=== PATIENT | male | born 1990 | race Caucasian/White ===

== ENCOUNTER 2020-12-06 16:25 | Emergency (ER) | payer BC, OTHER ==
--- NOTE | 2020-12-06 17:52 | EDM.PDOC ---
ED HPI GENERAL MEDICAL PROBLEM - General Chief Complaint: Back Pain or Injury Stated Complaint: BACK PAIN Time Seen by Provider: 12/06/20 17:36 Source of Information: Reports: Patient History Limitations: Reports: No Limitations - History of Present Illness INITIAL COMMENTS - FREE TEXT/NARRATIVE: HISTORY AND PHYSICAL: History of present illness: The patient is a 30-year-old presents to the ER with chronic mid back pain for approximately 2 years, occasional dizziness affecting his equilibrium, a dry cough and occasional shortness of breath. The patient is worried about chest cancer of some time due to smoking from the age of 16 to the age of 26. The patient cannot identify any worsening of his symptoms he is just saying that his made him come to the ER for concerns over cancer. States that he does not take any [id number] medications to treat his back pain and that he is able to work. He states approximately 4 years ago he felt a pop in his back after lifting a heavy object but never had a work-up for it. Patient states his back pain is intermittent. Patient denies any fever, chills, headache, change in vision, syncope or near syncope. Denies any chest pain. Denies any abdominal pain, nausea, vomiting, diarrhea, constipation or dysuria. Has not noted any blood in urine or stool. Patient has been eating and drinking appropriately. Review of systems: As per history of present illness and below otherwise all systems reviewed and negative. Past medical history: As per history of present illness and as reviewed below otherwise noncontribu tory. Surgical history: As per history of present illness and as reviewed below otherwise noncontributory. Social history: See social history for further information Family history: As per history of present illness and as reviewed below otherwise noncontributory. Physical exam: General: Well developed and well nourished. Alert and orientated x 3. Nontoxic in appearance and in no acute distress. Vital signs are stable and have been reviewed by me. Nursing notes were reviewed. HEENT: Atraumatic, normocephalic, pupils equal and reactive bilaterally, negative for conjunctival pallor or scleral icterus, mucous membranes moist, TMs normal bilaterally, throat clear, neck supple, nontender, trachea midline. No drooling or trismus noted. No meningeal signs. No hot potato voice noted. Lungs: Clear to auscultation bilaterally. No wheezes, rales, or rhonchi. Chest nontender. Normal work of breathing, no accessory muscles used. Heart: S1S2, regular rate and rhythm without overt murmur, gallops, or rubs. No JVD. No peripheral edema Abdomen: Soft, nondistended, nontender. Normoactive bowel sounds. Negative for masses or costovertebral tenderness. Back: Neck and back have no deformities, external skin changes, or signs of trauma. Curvature of the cervical, thoracic, and lumbar spine are within normal limits. Bony features of the shoulders and hips are of equal height bilaterally. Posture is upright, gait is smooth, steady, and within normal limits. No tenderness is noted on palpation of the spinous processes. Spinous processes are midline. Cervical, thoracic, and lumbar paraspinal muscles are not tender and are without spasm. No discomfort is noted with flexion, extension, and ebjy-br-wchy rotation of the cervical spine, full range of motion is noted. Full range of motion including flexion, extension, and aqay-li-wewx rotation of the thoracic and lumbar spine are noted and without discomfort. Straight leg raise test is negative bilaterally. Sensation to the upper and l ower extremities is normal bilaterally. No clonus is noted. 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 Dorsi/plantar flexion is normal bilaterally. Skin: Intact, warm, dry. No lesions or rashes noted. Hematologic: No petechiae or purpra. Mucosa appropriate color and normal nail bed color and refill. Extremities: Atraumatic, moves all extremities per self without difficulty or deficits, negative for cords or calf pain. Neurovascular unremarkable. Neuro: Awake, alert, oriented. Cranial nerves II through XII unremarkable. Cerebellum unremarkable. Motor and sensory unremarkable throughout. Exam nonfocal. Psychiatric: Mood and affect are appropriate. Normal thought process. Answering questions appropriately. Notes: *This patient was seen and evaluated during the 2019 SARS-CoV-2 novel coronavirus pandemic period. Community viral transmission is ongoing at time of this encounter and the emergency department is operating under pandemic response procedures. As stated above the patient is a 34-year-old male who comes in with multiple complaints of back pain, dry cough, occasional dizziness, and occasional shortness of breath. The patient states his wants him to get checked out for cancer. I explained the nature of the emergency department to the patient and that I could not do a comprehensive cancer work-up. The patient verbalized understanding. Upon asking the patient about GERD-like symptoms he volunteered that he once weighed 300 pounds and through bulimia was able to get down to 160 pounds. He stated that he met his 3 years ago and at the time was still bulimic. He stated a year after being he is no longer bulimic. The patient does state that if he lies flat she has trouble with acid reflux. The patient's neuro exam and back exam was essentially normal. I have ordered Toradol to treat the patient's pain and discomfort and Norflex for muscular strain. I have ordered a CBC, CMP, chest x-ray for a work-up. The patient's CBC is essentially normal. The patient's CMP was normal. The patient's chest x-ray was normal. I discussed the findings with the patient and that the patient should start pantoprazole twice a day and follow-up with an gastroe nterologist for an EGD regarding his GERD. I also advised the patient to follow-up with his primary care for a generalized work-up and to have a possible MRI of his back. The patient was agreeable with this discharge plan. I have talked with the patient about today's findings, in addition to providing specific details for plan of care. Reassessment at the time of disposition demonstrates that the patient is in no acute distress. The patient is stable for discharge, counseling was provided and we discussed in great detail signs and symptoms that would prompt them to return to the Emergency Department. Medication, follow up and supportive care measures were reviewed and discussed. Voices understanding and is agreeable to plan of care. Denies any further questions or concerns at this time. Diagnostics: CBC, CMP, chest x-ray Therapeutics: Toradol, Norflex Prescription:pantoprazole twice a day before meals. Impression: GERD, Back pain Plan: 1. You were evaluated today on an emergent basis. Your complaints of cough, back pain, occasional dizziness was evaluated with blood work and a chest x-ray. Your blood work was normal and your chest x-ray was negative. There is no evidence of cancer. You need to follow-up with your primary care doctor to have a generalized physical and work-up. I think your cough and feelings of acid reflux when you lie down is related to GERD. I have prescribed you pantoprazole twice a day before meals. You need to follow-up with your primary care for a EGD and further treatment. 2. You can alternate Tylenol and ibuprofen as needed for pain and fever management. 3. We encourage you to follow up with your primary care provider and/or recommended specialist in the next few days for re-evaluation and further care/management. 4. If your symptoms should worsen, new symptoms develop or any of the signs and symptoms we discussed should arise please return to the emergency room or call 911 (if needed). Definitive disposition and diagnosis as appropriate pending reevaluation and review of above. "Lungs" Pain Score (Numeric/FACES): 8 - Related Data Allergies Allergy/AdvReac Type Severity Reaction Status Date / Time Penicillins Allergy Rash Verified 12/06/20 17:33 Home Meds: Home Meds Orphenadrine [Norflex] 100 mg PO BID PRN 10 Days #20 tab 12/06/20 [Rx] Pantoprazole 20 mg PO BIDAC 20 Days #40 tab 12/06/20 [Rx] Past Medical History - Past Health History Medical/Surgical History: Denies Medical/Surgical History - Infectious Disease History Infectious Disease History: Reports: Chicken Pox - Past Surgical History Musculoskeletal Surgical History: Reports: Other (See Below) Other Musculoskeletal Surgeries/Procedures:: right middle finger joint fusion. left knee surgery Social & Family History - Family History Family Medical History: No Pertinent Family History - Tobacco Use Tobacco Use Status *Q: Former Tobacco User Used Tobacco, but Quit: Yes Month/Year Tobacco Last Used: 2018 - Caffeine Use Caffeine Use: Reports: None - Recreational Drug Use Recreational Drug Use: No ED ROS GENERAL - Review of Systems Review Of Systems: Comprehensive ROS is negative, except as noted in HPI. ED EXAM, GENERAL - Physical Exam Exam: See Below (See dictation) Course - Vital Signs Last Recorded V/S: Last Vital Signs Temp 97.4 F 12/06/20 18:41 Pulse 77 12/06/20 18:41 Resp 18 12/06/20 18:41 BP 136/67 12/06/20 18:41 Pulse Ox 98 12/06/20 18:41 - Orders/Labs/Meds Labs: Laboratory Tests 12/06/20 12/06/20 Range/Units 18:00 18:00 WBC 7.82 (4.0-11.0) K/uL RBC 5.22 (4.50-5.90) M/uL Hgb 15.2 (13.0-17.0) g/dL Hct 43.8 (38.0-50.0) % MCV 83.9 (80.0-98.0) fL MCH 29.1 (27.0-32.0) pg MCHC 34.7 (31.0-37.0) g/dL RDW Std Deviation 39.6 (28.0-62.0) fl RDW Coeff of Maria Eugenia 13 (11.0-15.0) % Plt Count 285 (150-400) K/uL MPV 10.00 (7.40-12.00) fL Neut % (Auto) 53.0 (48.0-80.0) % Lymph % (Auto) 25.7 (16.0-40.0) % Prentiss % (Auto) 15.0 (0.0-15.0) % Eos % (Auto) 5.5 (0.0-7.0) % Baso % (Auto) 0.8 (0.0-1.5) % Neut # (Auto) 4.2 (1.4-5.7) K/uL Lymph # (Auto) 2.0 (0.6-2.4) K/uL Prentiss # (Auto) 1.2 H (0.0-0.8) K/uL Eos # (Auto) 0.4 (0.0-0.7) K/uL Baso # (Auto) 0.1 (0.0-0.1) K/uL Nucleated RBC % 0.0 /100WBC Nucleated RBCs # 0 K/uL Sodium 142 (136-148) mmol/L Potassium 4.1 (3.5-5.1) mmol/L Chloride 106 (98-107) mmol/L Carbon Dioxide 26.8 (21.0-32.0) mmol/L BUN 13 (7.0-18.0) mg/dL Creatinine 1.4 H (0.8-1.3) mg/dL Est Cr Clr Drug Dosing 82.92 mL/min Estimated GFR (MDRD) 59.9 ml/min Glucose 105 (74-106) mg/dL Calcium 8.3 L (8.5-10.1) mg/dL Total Bilirubin 0.2 (0.2-1.0) mg/dL AST 13 L (15-37) IU/L ALT 38 (14-63) IU/L Alkaline Phosphatase 66 (46-116) U/L Total Protein 6.6 (6.4-8.2) g/dL Albumin 3.9 (3.4-5.0) g/dL Globulin 2.7 (2.6-4.0) g/dL Albumin/Globulin Ratio 1.4 (0.9-1.6) Meds: Medications Discontinued Medications Generic Name Dose Route Start Last Admin Trade Name Freq PRN Reason Stop Dose Admin Ketorolac Tromethamine 60 mg 12/06/20 17:51 12/06/20 18:36 Ketorolac 60 Mg/2 Ml Sdv IM 12/06/20 17:52 60 mg ONETIME ONE Administration Orphenadrine Citrate 60 mg 12/06/20 17:51 12/06/20 18:35 Orphenadrine 60 Mg/2 Ml Inj IM 12/06/20 17:52 60 mg ONETIME ONE Administration Pantoprazole Sodium 40 mg 12/06/20 18:57 12/06/20 19:24 Pantoprazole 40 Mg Tab.Cr PO 12/06/20 18:58 40 mg DAILY STA Administration Departure - Departure Time of Disposition: 18:59 Disposition: Home, Self-Care 01 Condition: Good Clinical Impression: Back pain Qualifiers: Back pain location: thoracic back pain Back pain laterality: bilateral GERD (gastroesophageal reflux disease) Qualifiers: Esophagitis presence: esophagitis presence not specified Qualified Code(s): K21.9 - Gastro-esophageal reflux disease without esophagitis - Discharge Information *PRESCRIPTION DRUG MONITORING PROGRAM REVIEWED*: Not Applicable *COPY OF PRESCRIPTION DRUG MONITORING REPORT IN PATIENT CONCHITA: Not Applicable Prescriptions: Orphenadrine [Norflex] 100 mg PO BID PRN 10 Days #20 tab PRN Reason: Muscle Spasm - Painful Pantoprazole 20 mg PO BIDAC 20 Days #40 tab.dr Instructions: Food Choices for Gastroesophageal Reflux Disease, Adult, Managing Chronic Back Pain, Gastroesophageal Reflux Disease, Adult, [id number] Referrals: Ozzie Pizarro MD [Primary Care Provider] - Forms: ED Department Discharge Additional Instructions: The following information is given to patients seen in the emergency department who are being discharged to home. This information is to outline your options for follow-up care. We provide all patients seen in our emergency department with a follow-up referral. The need for follow-up, as well as the timing and circumstances, are variable depending upon the specifics of your emergency department visit. If you don't have a primary care physician on staff, we will provide you with a referral. We always advise you to contact your personal physician following an emergency department visit to inform them of the circumstance of the visit and for follow-up with them and/or the need for any referrals to a consulting specialist. The emergency department will also refer you to a specialist when appropriate. This referral assures that you have the opportunity for follow-up care with a specialist. All of these measure are taken in an effort to provide you with optimal care, which includes your follow-up. Under all circumstances we always encourage you to contact your private physician who remains a resource for coordinating your care. When calling for follow-up care, please make the office aware that this follow-up is from your recent emergency room visit. If for any reason you are refused follow-up, please contact the [facility] Emergency Department at and asked to speak to the emergency department charge nurse. [facility] - Primary Care [address] [place] [address] [address] Plan: 1. You were evaluated today on an emergent basis. Your complaints of cough, back pain, occasional dizziness was evaluated with blood work and a chest x-ray. Your blood work was normal and your chest x-ray was negative. There is no evidence of cancer. You need to follow-up with your primary care doctor to have a generalized physical and work-up. I think your cough and feelings of acid reflux when you lie down is related to GERD. I have prescribed you pantoprazole twice a day before meals. You need to follow-up with your primary care for a EGD and further treatment. 2. You can alternate Tylenol and ibuprofen as needed for pain and fever management. 3. We encourage you to follow up with your primary care provider and/or recommended specialist in the next few days for re-evaluation and further care/management. 4. If your symptoms should worsen, new symptoms develop or any of the signs and symptoms we discussed should arise please return to the emergency room or call 911 (if needed). Sepsis Event Note (ED) - Focused Exam Vital Signs: Vital Signs Temp Pulse Resp BP Pulse Ox 12/06/20 18:41 97.4 F 77 18 136/67 98 12/06/20 17:33 97.6 F 82 18 117/87 97
[2020-12-06 18:19] LABS: CARBON DIOXIDE,CO2 26.8 mmol/L (21.0-32.0); POTASSIUM,K 4.1 mmol/L (3.5-5.1)
[2020-12-06] MEDS: Orphenadrine 60 MG/2 ML Inj IM ONE (18:35)
[2020-12-06] MEDS: Ketorolac 60 MG/2 ML SDV IM ONE (18:36)
[2020-12-06 18:41] VITALS: BP 136/67; PULSE 77
--- NOTE | 2020-12-06 18:42 | CR ---
INDICATION: Cough TECHNIQUE: Two view chest. FINDINGS: The lungs are clear. The heart, mediastinum and pulmonary vessels are of normal size. There is no evidence of pleural disease. IMPRESSION: Negative chest. Dictated by Sydni Dailey MD @ 12/06/2020 6:41:[address] Sydni Dailey @ Dec 06 2020 6:41PM
[2020-12-06] MEDS: Pantoprazole 40 MG Tab.CR PO STA (19:24)
== END 2020-12-06 19:27 | disposition home or self-care (01) ==
LOC: MW.ED 16:25
DX: M54.6 Pain in thoracic spine (principal); K21.9 Gastro-esophageal reflux disease without esophagitis; R42 Dizziness and giddiness; Z88.0 Allergy status to penicillin; Z79.899 Other long term (current) drug therapy; Z87.891 Personal history of nicotine dependence
CPT/HCPCS: 36415; 71046; 80053; 85025; 96372; 99284; A9270; J1885; J2360

== ENCOUNTER 2020-12-21 13:54 | Emergency (ER) | payer OTHER ==
--- NOTE | 2020-12-21 14:01 | PCM.EKG ---
#1 Interpretation EKG Date: 12/21/20 Time: 13:56 Rhythm: NSR Rate (Beats/Min): 106 [place]: Normal P-Wave: Present QRS: Normal ST-T: Normal QT: Normal Comparison: NA - No Prior EKG EKG Interpretation Comments: Sinus Tachycardia
[2020-12-21 14:55] LABS: BLOOD UREA NITROGEN,BUN 11 mg/dL (7.0-18.0); CARBON DIOXIDE,CO2 27.9 mmol/L (21.0-32.0); CHLORIDE,CL 103 mmol/L (98-107); GLUCOSE RANDOM 112 mg/dL (74-106); LIPASE 110 U/L (73-393); POTASSIUM,K 3.7 mmol/L (3.5-5.1); SODIUM,NA 137 mmol/L (136-148)
--- NOTE | 2020-12-21 15:08 | EDM.PDOC ---
ED HPI GENERAL MEDICAL PROBLEM - General Chief Complaint: Chest Pain Stated Complaint: SOB FAST HEART RATE Time Seen by Provider: 12/21/20 14:00 Source of Information: Reports: Patient History Limitations: Reports: No Limitations - History of Present Illness INITIAL COMMENTS - FREE TEXT/NARRATIVE: HISTORY AND PHYSICAL: History of present illness: Patient is a 30-year-old male who presents emergency room today with concern of an episode of shortness of breath and palpitations that lasted approximately 15 to 20 minutes just prior to arrival to the emergency room. Patient states that he was at work and he began feeling his heart race and felt like he could not breathe for approximately 15 to 20 minutes. Patient states he has had this occur multiple times in the past and has this evaluated by a fundraising sale representative in the past with stress test and myocardial perfusion scan. Patient states that typically, once he sits down and relaxes, he can get the episodes to go away but states that this time he was sitting for 15 to 20 minutes and states that his heart rate was continuing to go fast, he felt anxious, and short of breath. Patient states now on my examination, he states his symptoms have resolved but states that he was scared as he was unable to get it to go down prior to coming to the emergency room. Patient states that he has had these same episodes multiple times and had a "negative stress test, echo, a myocardial perfusion scan ". Patient states that he saw a fundraising sale representative in [place] who had done the echo and states that "nobody knows why this is happening ". Patient states now on my examination, his symptoms have all resolved and states that he has no complaints at this time. Patient denies fever, chills, chest pain, or cough. Denies headache, neck stiff ness, change in vision, syncope, or near syncope. Denies nausea, vomiting, abdominal pain, diarrhea, constipation, or dysuria. Has not noted any blood in urine or stool. Patient has been eating and drinking appropriately. Review of systems: As per history of present illness and below otherwise all systems reviewed and negative. Past medical history: As per history of present illness and as reviewed below otherwise noncontributory. Surgical history: As per history of present illness and as reviewed below otherwise noncontributory. Social history: See social history for further information Family history: As per history of present illness and as reviewed below otherwise noncontributory. Physical exam: General: Patient is alert, oriented, and in no acute distress. Patient sitting comfortably on exam table. HEENT: Atraumatic, normocephalic, pupils equal and reactive bilaterally, negative for conjunctival pallor or scleral icterus, mucous membranes moist, TMs normal bilaterally, throat clear, neck supple, nontender, trachea midline. No drooling or trismus noted. No meningeal signs. No hot potato voice noted. Lungs: Clear to auscultation, breath sounds equal bilaterally, chest nontender. Heart: S1S2, regular rate and rhythm without overt murmur Abdomen: Soft, nondistended, nontender. Negative for masses or hepatosplenomegaly. Negative for costovertebral tenderness. Pelvis: Stable nontender. Genitourinary: Deferred. Rectal: Deferred. Skin: Intact, warm, dry. No lesions or rashes noted. Extremities: Atraumatic, negative for cords or calf pain. Neurovascular unremark able. Neuro: Awake, alert, oriented. Cranial nerves II through XII unremarkable. Cerebellum unremarkable. Motor and sensory unremarkable throughout. Exam nonfocal. Notes: Patient is a 30-year-old male who presents emergency room today with concern of an episode of shortness of breath and palpitations that lasted approximately 15 to 20 minutes. Upon arrival to the ED, patient is vitally stable and well- appearing on exam. On triage, patient is noted to be mildly tachycardic 108 on vitals. However, on my exam, patient is 90 bpm without therapeutic intervention. Patient has had multiple episodes of this before and on chart review, patient does have an exercise stress test and myocardial perfusion scan which are unremarkable performed on 03/24/2020. Will obtain cardiac evaluation and reassess patient. See Dr. Cunningham's dictation for specific EKG interpretation. However, sinus tachycardia with a rate of 106 without STEMI or acute changes. CBC mild derangements unremarkable. CMP mild derangements unremarkable. Troponin negative. BNP within normal limits. COVID-19 negative. Lipase within normal limits. Chest x-ray shows no acute cardiopulmonary findings. Upon reevaluation of patient, he has improvement of mild tachycardia and is now 80 bpm on reexamination does not have any returning symptoms while in the emergency room. Patient was placed with a Zio patch/Holter monitor with instruction to follow-up with a fundraising sale representative, Dr. D. Strict return precautions thoroughly discussed with patient. Voices understanding and is agreeable to plan of care. Denies any further ques tions or concerns at this time. Diagnostics: EKG, CBC, CMP, COVID-19, lipase, BNP, troponin, chest x-ray Therapeutics: None Prescription: Holter monitor outpatient placed Impression: Palpitations Dyspnea Plan: 1. Wear the Zio patch as directed for 2 weeks. 2. Follow-up with a primary care provider and fundraising sale representative as discussed. Return to the ED as needed and as discussed. Definitive disposition and diagnosis as appropriate pending reevaluation and review of above. Left Shoulder Pain Score (Numeric/FACES): 4 - Related Data Allergies Allergy/AdvReac Type Severity Reaction Status Date / Time Penicillins Allergy Rash Verified 12/06/20 17:33 Home Meds: Home Meds Orphenadrine [Norflex] 100 mg PO BID PRN 10 Days #20 tab 12/06/20 [Rx] Pantoprazole 20 mg PO BIDAC 20 Days #40 tab. 12/06/20 [Rx] Past Medical History - Past Health History Medical/Surgical History: Denies Medical/Surgical History - Infectious Disease History Infectious Disease History: Reports: Chicken Pox - Past Surgical History Musculoskeletal Surgical History: Reports: Other (See Below) Other Musculoskeletal Surgeries/Procedures:: right middle finger joint fusion. left knee surgery Social & Family History - Family History Family Medical History: No Pertinent Family History - Tobacco Use Tobacco Use Status *Q: Unknown Ever Used Tobacco - Caffeine Use Caffeine Use: Reports: None ED ROS GENERAL - Review of Systems Review Of Systems: Comprehensive ROS is negative, except as noted in HPI. ED EXAM, GENERAL - Physical Exam Exam: See Below (see dictation) Course - Vital Signs Last Recorded V/S: Last Vital Signs Temp 98.1 F 12/21/20 17:14 Pulse 72 12/21/20 17:14 Resp 20 12/21/20 17:14 BP 118/73 12/21/20 17:14 Pulse Ox 98 12/21/20 17:14 - Orders/Labs/Meds Labs: Laboratory Tests 12/21/20 12/21/20 12/21/20 Range/Units 14:18 14:18 14:18 WBC 9.74 (4.0-11.0) K/uL RBC 5.72 (4.50-5.90) M/uL Hgb 16.6 (13.0-17.0) g/dL Hct 47.7 (38.0-50.0) % MCV 83.4 (80.0-98.0) fL MCH 29.0 (27.0-32.0) pg MCHC 34.8 (31.0-37.0) g/dL RDW Std Deviation 40.0 (28.0-62.0) fl RDW Coeff of Maria Eugenia 13 (11.0-15.0) % Plt Count 299 (150-400) K/uL MPV 10.00 (7.40-12.00) fL Neut % (Auto) 58.9 (48.0-80.0) % Lymph % (Auto) 27.2 (16.0-40.0) % [place] % (Auto) 10.2 (0.0-15.0) % Eos % (Auto) 3.1 (0.0-7.0) % Baso % (Auto) 0.6 (0.0-1.5) % Neut # (Auto) 5.7 (1.4-5.7) K/uL Lymph # (Auto) 2.7 H (0.6-2.4) K/uL [place] # (Auto) 1.0 H (0.0-0.8) K/uL Eos # (Auto) 0.3 (0.0-0.7) K/uL Baso # (Auto) 0.1 (0.0-0.1) K/uL Nucleated RBC % 0.0 /100WBC Nucleated RBCs # 0 K/uL Sodium 137 (136-148) mmol/L Potassium 3.7 (3.5-5.1) mmol/L Chloride 103 (98-107) mmol/L Carbon Dioxide 27.9 (21.0-32.0) mmol/L BUN 11 (7.0-18.0) mg/dL Creatinine 1.1 (0.8-1.3) mg/dL Est Cr Clr Drug Dosing TNP Estimated GFR (MDRD) > 60.0 ml/min Glucose 112 H (74-106) mg/dL Calcium 9.5 (8.5-10.1) mg/dL Total Bilirubin 0.3 (0.2-1.0) mg/dL AST 23 (15-37) IU/L ALT 56 (14-63) IU/L Alkaline Phosphatase 68 (46-116) U/L Troponin I < 0.050 (0.000-0.056) ng/mL B-Natriuretic Peptide 13 (<100) PG/ML Total Protein 7.4 (6.4-8.2) g/dL Albumin 4.2 (3.4-5.0) g/dL Globulin 3.2 (2.6-4.0) g/dL Albumin/Globulin Ratio 1.3 (0.9-1.6) Lipase 110 (73-393) U/L SARS-CoV-2 RNA (EMEKA) (NEGATIVE) 12/21/20 Range/Units 14:33 WBC (4.0-11.0) K/uL RBC (4.50-5.90) M/uL Hgb (13.0-17.0) g/dL Hct (38.0-50.0) % MCV (80.0-98.0) fL MCH (27.0-32.0) pg MCHC (31.0-37.0) g/dL RDW Std Deviation (28.0-62.0) fl RDW Coeff of Maria Eugenia (11.0-15.0) % Plt Count (150-400) K/uL MPV (7.40-12.00) fL Neut % (Auto) (48.0-80.0) % Lymph % (Auto) (16.0-40.0) % [place] % (Auto) (0.0-15.0) % Eos % (Auto) (0.0-7.0) % Baso % (Auto) (0.0-1.5) % Neut # (Auto) (1.4-5.7) K/uL Lymph # (Auto) (0.6-2.4) K/uL [place] # (Auto) (0.0-0.8) K/uL Eos # (Auto) (0.0-0.7) K/uL Baso # (Auto) (0.0-0.1) K/uL Nucleated RBC % /100WBC Nucleated RBCs # K/uL Sodium (136-148) mmol/L Potassium (3.5-5.1) mmol/L Chloride (98-107) mmol/L Carbon Dioxide (21.0-32.0) mmol/L BUN (7.0-18.0) mg/dL Creatinine (0.8-1.3) mg/dL Est Cr Clr Drug Dosing Estimated GFR (MDRD) ml/min Glucose (74-106) mg/dL Calcium (8.5-10.1) mg/dL Total Bilirubin (0.2-1.0) mg/dL AST (15-37) IU/L ALT (14-63) IU/L Alkaline Phosphatase (46-116) U/L Troponin I (0.000-0.056) ng/mL B-Natriuretic Peptide (<100) PG/ML Total Protein (6.4-8.2) g/dL Albumin (3.4-5.0) g/dL Globulin (2.6-4.0) g/dL Albumin/Globulin Ratio (0.9-1.6) Lipase (73-393) U/L SARS-CoV-2 RNA (EMEKA) NEGATIVE (NEGATIVE) Departure - Departure Time of Disposition: 17:02 Disposition: Home, Self-Care 01 Clinical Impression: Palpitations Dyspnea Qualifiers: Dyspnea type: unspecified Qualified Code(s): R06.00 - Dyspnea, unspecified - Discharge Information Referrals: Ozzie Pizarro MD [Primary Care Provider] - Forms: ED Department Discharge Additional Instructions: The following information is given to patients seen in the emergency department who are being discharged to home. This information is to outline your options for follow-up care. We provide all patients seen in our emergency department with a follow-up referral. The need for follow-up, as well as the timing and circumstances, are variable depending upon the specifics of your emergency department visit. If you don't have a primary care physician on staff, we will provide you with a referral. We always advise you to contact your personal physician following an emergency department visit to inform them of the circumstance of the visit and for follow-up with them and/or the need for any referrals to a consulting specialist. The emergency department will also refer you to a specialist when appropriate. This referral assures that you have the opportunity for follow-up care with a specialist. All of these measure are taken in an effort to provide you with optimal care, which includes your follow-up. Under all circumstances we always encourage you to contact your private physician who remains a resource for coordinating your care. When calling for follow-up care, please make the office aware that this follow-up is from your recent emergency room visit. If for any reason you are refused follow-up, please contact the [facility] Emergency Department at and asked to speak to the emergency department charge nurse. [facility] Primary Care / Cardiology [address] [place] [id number] [facility] [address] [place] [id number] 1. Wear the Zio patch as directed for 2 weeks. 2. Follow-up with a primary care provider and fundraising sale representative as discussed. Return to the ED as needed and as discussed.
--- NOTE | 2020-12-21 17:00 | CR ---
INDICATION: Palpitation TECHNIQUE: Chest 1 view. COMPARISON: 06 December 2020 FINDINGS: Cardiovascular and mediastinum: Heart size and vasculature are normal in caliber and appearance. Mediastinum is within normal limits. Lungs and pleural space: Lungs are clear. No sign of infiltrate or mass. No sign of pleural effusion. No pneumothorax. Bones and soft tissues: No significant findings. IMPRESSION: Unremarkable chest. Dictated by Isiah Rayo MD @ 12/21/2020 4:59:32 PM (Electronically Signed)
[2020-12-21 17:15] VITALS: BP 118/73; PULSE 72
== END 2020-12-21 17:14 | disposition home or self-care (01) ==
LOC: MW.ED 13:54
DX: R06.02 Shortness of breath (principal); R00.2 Palpitations; Z88.0 Allergy status to penicillin; Z20.822 Contact with and (suspected) exposure to COVID-19
CPT/HCPCS: 36415; 71045; 71045-26; 80053; 83690; 83880; 84484; 85025; 93005; 99285-25; U0002

== ENCOUNTER 2021-01-11 12:55 | Emergency (ER) | payer OTHER ==
--- NOTE | 2021-01-11 12:59 | EDM.PDOC ---
ED HPI GENERAL MEDICAL PROBLEM - General Chief Complaint: Gastrointestinal Problem Stated Complaint: OLSTER Time Seen by Provider: 01/11/21 12:56 Source of Information: Reports: Patient History Limitations: Reports: No Limitations - History of Present Illness INITIAL COMMENTS - FREE TEXT/NARRATIVE: 30-year-old male past medical history GERD presents for midepigastric abdominal pain and concern for dark tarry stools. Patient states that for the last several months he has noted a midepigastric abdominal pain that is made worse by food, frequent belching, bloating. He notes a history of a stomach ulcer when he was a kid but has not seen a physician in a long time. Never had an endoscopy. No history of abdominal surgeries. Last night he was having an episode of this midepigastric abdominal pain radiating to the back and took some Pepto-Bismol. This morning he woke up and had 2 times episodes of dark tarry stool concerning for bleeding. abdomen Pain Score (Numeric/FACES): 9 - Related Data Allergies Allergy/AdvReac Type Severity Reaction Status Date / Time Penicillins Allergy Rash Verified 01/11/21 13:27 Home Meds: Home Meds Orphenadrine [Norflex] 100 mg PO BID PRN 10 Days #20 tab 12/06/20 [Rx] Pantoprazole 20 mg PO BIDAC 20 Days #40 tab. 12/06/20 [Rx] Past Medical History - Past Health History Medical/Surgical History: Denies Medical/Surgical History - Infectious Disease History Infectious Disease History: Reports: Chicken Pox - Past Surgical History Musculoskeletal Surgical History: Reports: Other (See Below) Other Musculoskeletal Surgeries/Procedures:: right middle finger joint fusion. left knee surgery Social & Family History - Family History Family Medical History: No Pertinent Family History - Caffeine Use Caffeine Use: Reports: None ED ROS GENERAL - Review of Systems Review Of Systems: Comprehensive ROS is negative, except as noted in HPI. ED EXAM, GENERAL - Physical Exam Exam: See Below Exam Limited By: No Limitations General Appearance: Alert, WD/WN, No Apparent Distress Ears: Hearing Grossly Normal Throat/Mouth: Normal Voice, No Airway Compromise Head: Atraumatic, Normocephalic Respiratory/Chest: No Respiratory Distress, Lungs Clear, Normal Breath Sounds, No Accessory Muscle Use Cardiovascular: Normal Peripheral Pulses, Regular Rate, Rhythm GI/Abdominal: Soft, Non-Tender (Male) Exam: Other (Guaiac negative dark tarry stool) Extremities: Normal Inspection Neurological: Alert, Normal Cognition, Normal Gait Psychiatric: Normal Affect, Normal Mood Skin Exam: Warm, Dry, Intact, Normal Color Course - Vital Signs Last Recorded V/S: Last Vital Signs Temp 98.0 F 01/11/21 13:21 Pulse 76 01/11/21 15:56 Resp 16 01/11/21 15:56 BP 139/88 01/11/21 15:56 Pulse Ox 98 01/11/21 15:56 - Orders/Labs/Meds Orders: Active Orders 24 hr Category Date Time Status H PYLORI STOOL ANTIGEN [MREF] Stat Lab 01/11/21 14:44 Ordered Saline Lock Insert [OM.PC] Stat Oth 01/11/21 14:43 Ordered Labs: Laboratory Tests 01/11/21 01/11/21 01/11/21 Range/Units 14:38 14:38 14:38 WBC 9.79 (4.0-11.0) K/uL RBC 5.48 (4.50-5.90) M/uL Hgb 15.6 (13.0-17.0) g/dL Hct 46.1 (38.0-50.0) % MCV 84.1 (80.0-98.0) fL MCH 28.5 (27.0-32.0) pg MCHC 33.8 (31.0-37.0) g/dL RDW Std Deviation 40.9 (28.0-62.0) fl RDW Coeff of Maria Eugenia 13 (11.0-15.0) % Plt Count 310 (150-400) K/uL MPV 10.20 (7.40-12.00) fL Neut % (Auto) 62.8 (48.0-80.0) % Lymph % (Auto) 21.9 (16.0-40.0) % [place] % (Auto) 12.3 (0.0-15.0) % Eos % (Auto) 2.0 (0.0-7.0) % Baso % (Auto) 1.0 (0.0-1.5) % Neut # (Auto) 6.2 H (1.4-5.7) K/uL Lymph # (Auto) 2.1 (0.6-2.4) K/uL [place] # (Auto) 1.2 H (0.0-0.8) K/uL Eos # (Auto) 0.2 (0.0-0.7) K/uL Baso # (Auto) 0.1 (0.0-0.1) K/uL Nucleated RBC % 0.0 /100WBC Nucleated RBCs # 0 K/uL INR 0.96 APTT 23.0 (18.6-31.3) SEC Sodium 140 (136-148) mmol/L Potassium 4.1 (3.5-5.1) mmol/L Chloride 104 (98-107) mmol/L Carbon Dioxide 26.4 (21.0-32.0) mmol/L BUN 11 (7.0-18.0) mg/dL Creatinine 1.0 (0.8-1.3) mg/dL Est Cr Clr Drug Dosing 116.09 mL/min Estimated GFR (MDRD) > 60.0 ml/min Glucose 97 (74-106) mg/dL Lactic Acid (0.4-2.0) mmol/L Calcium 8.8 (8.5-10.1) mg/dL Magnesium 2.2 (1.8-2.4) mg/dL Total Bilirubin 0.4 (0.2-1.0) mg/dL AST 27 (15-37) IU/L ALT 55 (14-63) IU/L Alkaline Phosphatase 63 (46-116) U/L Total Protein 7.6 (6.4-8.2) g/dL Albumin 4.2 (3.4-5.0) g/dL Globulin 3.4 (2.6-4.0) g/dL Albumin/Globulin Ratio 1.2 (0.9-1.6) Lipase 113 (73-393) U/L 01/11/21 Range/Units 15:06 WBC (4.0-11.0) K/uL RBC (4.50-5.90) M/uL Hgb (13.0-17.0) g/dL Hct (38.0-50.0) % MCV (80.0-98.0) fL MCH (27.0-32.0) pg MCHC (31.0-37.0) g/dL RDW Std Deviation (28.0-62.0) fl RDW Coeff of Maria Eugenia (11.0-15.0) % Plt Count (150-400) K/uL MPV (7.40-12.00) fL Neut % (Auto) (48.0-80.0) % Lymph % (Auto) (16.0-40.0) % [place] % (Auto) (0.0-15.0) % Eos % (Auto) (0.0-7.0) % Baso % (Auto) (0.0-1.5) % Neut # (Auto) (1.4-5.7) K/uL Lymph # (Auto) (0.6-2.4) K/uL [place] # (Auto) (0.0-0.8) K/uL Eos # (Auto) (0.0-0.7) K/uL Baso # (Auto) (0.0-0.1) K/uL Nucleated RBC % /100WBC Nucleated RBCs # K/uL INR APTT (18.6-31.3) SEC Sodium (136-148) mmol/L Potassium (3.5-5.1) mmol/L Chloride (98-107) mmol/L Carbon Dioxide (21.0-32.0) mmol/L BUN (7.0-18.0) mg/dL Creatinine (0.8-1.3) mg/dL Est Cr Clr Drug Dosing mL/min Estimated GFR (MDRD) ml/min Glucose (74-106) mg/dL Lactic Acid 1.1 (0.4-2.0) mmol/L Calcium (8.5-10.1) mg/dL Magnesium (1.8-2.4) mg/dL Total Bilirubin (0.2-1.0) mg/dL AST (15-37) IU/L ALT (14-63) IU/L Alkaline Phosphatase (46-116) U/L Total Protein (6.4-8.2) g/dL Albumin (3.4-5.0) g/dL Globulin (2.6-4.0) g/dL Albumin/Globulin Ratio (0.9-1.6) Lipase (73-393) U/L Meds: Medications Discontinued Medications Generic Name Dose Route Start Last Admin Trade Name Freq PRN Reason Stop Dose Admin Al Hydroxide/Mg Hydroxide 15 0 ml 01/11/21 14:58 10/04/21 15:05 ml/ Lidocaine HCl 5 ml PO 01/11/21 14:59 45 each ONETIME ONE Administration Pantoprazole Sodium 40 mg/ 10 mls @ 300 mls/hr 01/11/21 14:43 01/11/21 14:55 Sodium Chloride IV 01/11/21 14:44 300 mls/hr NOW ONE Administration Sodium Chloride 1,000 mls @ 999 mls/hr 01/11/21 14:43 01/11/21 14:54 Normal Saline IV 01/11/21 15:43 999 mls/hr .Bolus ONE Administration Ondansetron HCl 4 mg 01/11/21 14:43 01/11/21 14:57 Ondansetron 4 Mg/2 Ml Sdv IVPUSH 01/11/21 14:44 4 mg ONETIME ONE Administration - Re-Assessments/Exams Free Text/Narrative Re-Assessment/Exam: 01/11/21 15:59 Labs are unremarkable. Patient is feeling better after medications. Will discharge with GI cocktail and Protonix. I have referred patient for endoscopy. We have also sent an H. pylori antigen. Departure - Departure Time of Disposition: 15:59 Disposition: Home, Self-Care 01 Condition: Good Clinical Impression: Peptic ulcer - Discharge Information Instructions: Peptic Ulcer, Peptic Ulcer, [id number] Referrals: Ozzie Pizarro MD [Primary Care Provider] - Forms: ED Department Discharge Additional Instructions: Your symptoms are highly suggestive of peptic ulcer disease. You will need to follow-up for an endoscopy to confirm this. We have also sent an H. pylori stool study. I have prescribed you a medication called Protonix which should help with symptoms. I have also prescribed GI cocktail that you can take as needed for symptoms. The following information is given to patients seen in the emergency department who are being discharged to home. This information is to outline your options for follow-up care. We provide all patients seen in our emergency department with a follow-up referral. The need for follow-up, as well as the timing and circumstances, are variable depending upon the specifics of your emergency department visit. If you don't have a primary care physician on staff, we will provide you with a referral. We always advise you to contact your personal physician following an emergency department visit to inform them of the circumstance of the visit and f or follow-up with them and/or the need for any referrals to a consulting specialist. The emergency department will also refer you to a specialist when appropriate. This referral assures that you have the opportunity for follow-up care with a specialist. All of these measure are taken in an effort to provide you with optimal care, which includes your follow-up. Under all circumstances we always encourage you to contact your private physician who remains a resource for coordinating your care. When calling for follow-up care, please make the office aware that this follow-up is from your recent emergency room visit. If for any reason you are refused follow-up, please contact the [facility] Emergency Department at and asked to speak to the emergency department charge nurse. Please follow up with your primary care physician. If you do not have a primary care physician, see below: [facility] Primary [facility] [address] [place] [address] [id number] [facility] [address] [place] [id number] [facility] [address] [place] [id number] Sepsis Event Note (ED) - Focused Exam Vital Signs: Vital Signs Temp Pulse Resp BP Pulse Ox 01/11/21 15:56 76 16 139/88 98 01/11/21 13:21 98.0 F 89 18 145/98 H 98 - My Orders Last 24 Hours: My Active Orders 01/11/21 14:43 Saline Lock Insert [OM.PC] Stat 01/11/21 14:44 H PYLORI STOOL ANTIGEN [MREF] Stat - Assessment/Plan Last 24 Hours: My Active Orders 01/11/21 14:43 Saline Lock Insert [OM.PC] Stat 01/11/21 14:44 H PYLORI STOOL ANTIGEN [MREF] Stat
[2021-01-11] MEDS ORDERED: Pantoprazole 40 MG in Sodium Chloride 0.9% 10 ML IV ONE (14:43)
[2021-01-11] MEDS ORDERED: Sodium Chloride 0.9% 1,000 ML IV ONE (14:43)
[2021-01-11] MEDS ORDERED: Ondansetron 4 MG/2 ML SDV IVPUSH ONE (14:43)
[2021-01-11] MEDS ORDERED: Alum Hydrox/Mag Hydrox/Simeth 15 ML, Lidocaine 2% 5 ML PO ONE ×2 (14:58)
[2021-01-11 15:37] LABS: BLOOD UREA NITROGEN,BUN 11 mg/dL (7.0-18.0); CARBON DIOXIDE,CO2 26.4 mmol/L (21.0-32.0); CHLORIDE,CL 104 mmol/L (98-107); GLUCOSE RANDOM 97 mg/dL (74-106); LIPASE 113 U/L (73-393); POTASSIUM,K 4.1 mmol/L (3.5-5.1); SODIUM,NA 140 mmol/L (136-148)
[2021-01-11 16:30] VITALS: BP 123/82; PULSE 85
== END 2021-01-11 16:31 | disposition home or self-care (01) ==
LOC: MW.ED 12:55
DX: K27.9 Peptic ulcer, site unspecified, unspecified as acute or chronic, without hemorrhage or perforation (principal); Z88.0 Allergy status to penicillin; Z79.899 Other long term (current) drug therapy
CPT/HCPCS: 36415; 80053; 83605; 83690; 83735; 85025; 85610; 85730; 87338; 96374; 96375; 99284; A9270; C9113; J2405; J7030

== ENCOUNTER 2021-10-23 21:41 | Emergency (ER) | payer OTHER ==
[2021-10-24 00:34] VITALS: BP 123/71; PULSE 74
== END 2021-10-23 23:15 | disposition home or self-care (01) ==
LOC: MW.ED 21:41
DX: M79.10 Myalgia, unspecified site (principal); Z88.0 Allergy status to penicillin
CPT/HCPCS: 99283

== ENCOUNTER 2021-11-01 20:30 | Emergency (ER) | payer OTHER ==
[2021-11-01 23:19] VITALS: BP 127/74; PULSE 78
== END 2021-11-01 23:20 | disposition home or self-care (01) ==
LOC: MW.ED 20:30
DX: G51.9 Disorder of facial nerve, unspecified (principal); A69.20 Lyme disease, unspecified; H66.91 Otitis media, unspecified, right ear; K21.9 Gastro-esophageal reflux disease without esophagitis; Z88.0 Allergy status to penicillin; Z79.899 Other long term (current) drug therapy
CPT/HCPCS: 99282; 99283

== ENCOUNTER 2022-05-30 14:43 | Emergency (ER) | payer BC, OTHER ==
[2022-05-30] MEDS ORDERED: Famotidine 20 MG/2 ML SDV IVPUSH ONE (16:08)
[2022-05-30] MEDS ORDERED: Ondansetron 4 MG/2 ML SDV IVPUSH ONE (16:08)
[2022-05-30] MEDS ORDERED: Sodium Chloride 0.9% 1,000 ML IV ONE (16:08)
[2022-05-30] MEDS ORDERED: Morphine 4 MG/ML Syringe IVPUSH ONE (16:08)
[2022-05-30] MEDS ORDERED: Alum Hydro/Mag Hydro/Simeth XS 15 ML, Lidocaine 2% 5 ML PO ONE ×2 (16:09)
[2022-05-30 17:04] LABS: CARBON DIOXIDE,CO2 25.7 mmol/L (21.0-32.0)
[2022-05-30] MEDS ORDERED: Haloperidol Lactate 5 MG/ML SDV IM ONE ×2 (17:46→17:48)
[2022-05-30] MEDS ORDERED: Iopamidol 755 MG/ML 500 ML Multipack Bottle IVPUSH ONE (18:05)
[2022-05-30 18:40] VITALS: BP 104/38
[2022-05-30 19:36] VITALS: PULSE 78
== END 2022-05-30 19:36 | disposition home or self-care (01) ==
LOC: MW.ED 14:43
DX: K52.9 Noninfective gastroenteritis and colitis, unspecified (principal); Z88.0 Allergy status to penicillin
CPT/HCPCS: 36415; 74177; 76705; 80053; 83605; 83690; 83735; 85025; 86140; 96361; 96372; 96374; 96375; 99284; A9270; J1630; J2270; J2405; J3490; J7030; Q9967

== ENCOUNTER 2022-09-12 01:50 | Emergency (ER) | payer BC ==
[2022-09-12 02:10] VITALS: PULSE 56
[2022-09-12] MEDS ORDERED: Ondansetron 4 MG/2 ML SDV IVPUSH ONE (02:10)
[2022-09-12] MEDS ORDERED: Famotidine 20 MG/2 ML SDV IVPUSH ONE (02:10)
[2022-09-12] MEDS ORDERED: Sodium Chloride 0.9% 1,000 ML IV ONE (02:10)
[2022-09-12] MEDS ORDERED: Aluminum Hydroxide/Magnesium Hydroxide/Simethicone XS Susp 30 ML Cup PO ONE (02:12)
[2022-09-12 02:41] LABS: BASOPHILS ABSOLUTE AUTO 0.1 K/uL (0.0-0.1); BASOPHILS PERCENT AUTO 0.6 % (0.0-1.5); EOSINOPHILS ABSOLUTE AUTO 0.2 K/uL (0.0-0.7); EOSINOPHILS PERCENT AUTO 2.9 % (0.0-7.0); HEMATOCRIT 44.6 % (38.0-50.0); HEMOGLOBIN 15.4 g/dL (13.0-17.0); LYMPHOCYTES ABSOLUTE AUTO 2.8 K/uL (0.6-2.4); LYMPHOCYTES PERCENT AUTO 35.7 % (16.0-40.0); MEAN CORPUSCULAR HEMOGLOBIN 28.6 pg (27.0-32.0); MEAN CORPUSCULAR HGB CONC 34.5 g/dL (31.0-37.0); MEAN CORPUSCULAR VOLUME 82.9 fL (80.0-98.0); MONOCYTES ABSOLUTE AUTO 1.1 K/uL (0.0-0.8); MONOCYTES PERCENT AUTO 14.4 % (0.0-15.0); NEUTROPHILS ABSOLUTE AUTO 3.7 K/uL (1.4-5.7); NEUTROPHILS PERCENT AUTO 46.4 % (48.0-80.0); NRBC ABSOLUTE 0 K/uL; PLATELET COUNT,PLT 295 K/uL (150-400); RED BLOOD CELL COUNT 5.38 M/uL (4.50-5.90); WHITE BLOOD CELL COUNT,WBC 7.89 K/uL (4.0-11.0)
[2022-09-12 03:10] LABS: A/G RATIO 1.3 (0.9-1.6); ALBUMIN 3.9 g/dL (3.4-5.0); BILIRUBIN TOTAL 0.4 mg/dL (0.2-1.0); CALCIUM 8.8 mg/dL (8.5-10.1); CARBON DIOXIDE,CO2 24.4 mmol/L (21.0-32.0); POTASSIUM,K 3.5 mmol/L (3.5-5.1); PROTEIN TOTAL,TP 6.8 g/dL (6.4-8.2); TSH ULTRASENSITIVE 2.54 uIU/mL (0.36-3.74)
[2022-09-12 03:40] VITALS: BP 117/61
== END 2022-09-12 03:39 | disposition home or self-care (01) ==
LOC: MW.ED 01:50
DX: K29.70 Gastritis, unspecified, without bleeding (principal); R00.1 Bradycardia, unspecified; Z88.0 Allergy status to penicillin
CPT/HCPCS: 36415; 71045; 80053; 83690; 83735; 84443; 84484; 85025; 93005; 96361; 96374; 96375; 99284; A9270; J2405; J3490; J7030; 93010

== ENCOUNTER 2024-07-22 08:10 | Emergency (ER) | payer BC ==
[2024-07-22] MEDS: Acetaminophen 325 MG Tab PO ONE (08:38)
[2024-07-22] MEDS: oxyCODONE 5 MG Tab PO ONE (08:38)
[2024-07-22] MEDS: Ketorolac 30 MG/ML SDV IM ONE (08:38)
[2024-07-22] MEDS: Clindamycin HCl 150 MG Cap PO ONE (08:38)
[2024-07-22 08:50] VITALS: BP 130/79; PULSE 76
== END 2024-07-22 08:51 | disposition home or self-care (01) ==
LOC: MW.ED 08:10
DX: K04.7 Periapical abscess without sinus (principal); J34.89 Other specified disorders of nose and nasal sinuses; Z88.0 Allergy status to penicillin; Z79.899 Other long term (current) drug therapy
CPT/HCPCS: 96372; 99283; A9270; J1885; 99282